=== PATIENT | male | born 1990 | race Caucasian/White ===

== ENCOUNTER 2017-03-14 11:19 | Observation (INO) ==
[2017-03-14] MEDS ORDERED: DIPH/TET/ACEL PERT BOOSTER VACCINE 0.5 ML VIAL IM ONE ×2 (12:07→12:10)
--- NOTE | 2017-03-14 12:15 | Emergency Department Note ---
Arrival - Arrival Chief Complaint: Wound/Laceration Stated Complaint: finger cut sand blasting ED Nursing Triage Note: pt c/o wound to right thumb- pt was sandblasting and his thumb was hit with the sandblast. dime size wound noted to thumb, no bleeding at triage. dressing in place. incident occured at 0900. Mode of Arrival: Ambulatory Source: Patient Time Seen by Provider: 03/14/17 11:47 - History of Present Illness HPI Narrative: 27 y/o white male presents to the ER complaining of wound to right thumb. States he was sandblasting on the pipe line and his thumb was hit by the sandblast. Injury occurred at 0900 this morning. Pain with touch and movement. Tetanus shot is not UTD. Denies past medical history. Onset (ago): hour(s) (3) Consistency: constant Severity: moderate Quality: aching Allergies/Adverse Reactions: Allergies Allergy/AdvReac Type Severity Reaction Status Date / Time No Known Allergies Allergy Verified 03/14/17 11:42 Review of System - Review of System 12 point system: reviewed and no additional remarkable complaints except as stated - Review of System Skin: Present: other (blast injury to right thumb ) Medical,Surgical,& Family Hx - Social History Smoking Status: Never smoker Frequency of Alcohol Use: Occasionally Type of Drug Use: None Exam Vital Signs: Vital Signs Temperature 98.0 F 03/14/17 11:40 Pulse Rate 79 03/14/17 13:30 Respiratory Rate 20 03/14/17 13:30 Blood Pressure 141/91 03/14/17 13:30 O2 Sat by Pulse Oximetry 100 03/14/17 13:30 - General General appearance: alert, in no apparent distress - ENT ENT exam: Present: normal exam, normal oropharynx, mucous membranes moist - Chest Chest inspection: Present: normal inspection - Respiratory Respiratory exam: Present: normal lung sounds bilaterally - Cardiovascular Cardiovascular exam: Present: regular rate, normal rhythm, normal heart sounds - Extremities Exam Extremities exam: Present: normal inspection, full ROM (Full ROM to right thumb ; dime size injury right thumb; TTP), normal capillary refill - Neurological Exam Neurological exam: Present: alert, oriented X3 - Psychiatric Psychiatric exam: Present: normal affect, normal mood - Skin Skin exam: Present: warm, dry, other (dime size wound to right thumb; TTP; no active bleeding ) Course Course Narrative: Irrigated finger with 250 ml of Normal Saline and cleaned with wound cleanser - Consultations Consultation #1: Dr. Winters Time: 14:40 (Discussed case with Dr. Winters. Dr. Winters will take patient to surgery after clinic to was wound out ) Results - Labs CBC & BMP: 03/14/17 14:18 03/14/17 14:18 Lab Results: I have reviewed the patients labs - Diagnostic Findings Procedure: X-ray: image reviewed by me, report reviewed by me (right thumb: No bony abnormality. Amorphous particlate foreign body opacity associated with the shallow soft tissue and or sking surface of the thumb. ) Disposition Clinical Impression: Blast injury Case discussed with: patient Disposition: Still a Patient Condition: Stable Instructions: Acute Wound Care (ED) Additional Instructions: Follow up with Primary Care Physician in 2 days for a wound check and ER as needed. No driving while taking [place]. Referrals: Tom Winters Jr., MD [Physician] - 24-48 Hrs if not improved Contact your physician if you experience:: fever over 101, Redness or swelling, pain uncontrolled by pain medications Return to the Emergency Department if:: fever over 101, Redness or swelling, pain uncontrolled by pain medications
--- NOTE | 2017-03-14 13:56 | XRay Report ---
History: Right thumb wound. Sandblaster injury Date: 03/14/2017 Study: Right thumb 3 views Comparison exam: No previous There is no fracture, dislocation, or focal destructive osseous abnormality. There is some amorphous high density soft tissue opacity in the soft tissues ventral and medial to the distal aspect of the first proximal phalanx. Impression: No bony abnormality. Amorphous particulate foreign body opacity associated with the shallow soft tissues and/or skin surface of the thumb PROCEDURE INTERPRETED AT [facility] DEPARTMENT OF RADIOLOGY Final Report Signed by: Dr. Jada Gonzalez
[2017-03-14 14:28] LABS: Basophils # 0.1 10*3/uL (0.0-0.2); Basophils % 0.7 % (0.0-0.8); Eosinophils # 0.3 10*3/uL (0.0-0.87); Eosinophils % 3.8 % (0.00-10.9); Hematocrit 47.1 VOL% (42.0-52.0); Hemoglobin 15.5 GM/DL (14.0-18.0); Immature Granulocytes % 0.1 %; Immature Granulocytes Absolute 0.01 #; Lymphocytes # 2.5 10*3/uL (1.4-4.0); Lymphocytes % 33.7 % (21.2-54.2); Mean Corpuscular HGB Conc 32.9 GM/DL (32-36); Mean Corpuscular Hemoglobin 29 PG (27-34); Mean Corpuscular Volume 87.7 FL (87-102); Mean Platelet Volume 10.1 FL (9.6-12.0); Monocytes # 0.5 10*3/uL (0.11-0.8); Monocytes % 6.5 % (1.7-12.7); Neutrophils # 4.1 10*3/uL (1.4-7.4); Neutrophils % 55.2 % (38.7-73.9); Platelet Count 216 T/CUMM (130-400); Red Blood Count 5.37 MC/CUMM (3.8-5.5); Red Cell Distribution Width 12.8 % (9.3-17.3); White Blood Count 7.4 T/CUMM (4-12)
[2017-03-14 14:57] LABS: Albumin 4.5 G/DL (3.4-5.0); Bilirubin,Total 0.6 MG/DL (0.2-1.0); Calcium 9.1 MG/DL (8.5-10.1); Osmolality,Calculated 277.5 MOS/KG (273-304); Potassium 4.2 MMOL/L (3.5-5.1); Total Protein 7.9 G/DL (6.4-8.3)
[2017-03-14] MEDS ORDERED: HYDROmorphone 2 MG/1 ML VIAL IM STA (15:08)
[2017-03-14] MEDS ORDERED: ONDANSETRON 4 MG/2 ML VIAL IM STA (15:08)
[2017-03-14] MEDS ORDERED: HYDROmorphone 2 MG/1 ML VIAL IV STA (15:08)
[2017-03-14] MEDS ORDERED: ONDANSETRON 4 MG/2 ML VIAL IV STA (15:10)
[2017-03-14] MEDS ORDERED: HYDROmorphone 2 MG/1 ML VIAL ONE (15:12)
[2017-03-14] MEDS ORDERED: ONDANSETRON 4 MG/2 ML VIAL ONE ×2 (15:12→18:07)
[2017-03-14] MEDS ORDERED: ceFAZolin 1,000 MG VIAL ONE (15:24)
--- NOTE | 2017-03-14 16:50 | Orthopedic History & Physical ---
Assessment and Plan (1) Blast injury Status: Acute Current Visit: Yes History of Present Illness Chief complaint: Right thumb sandblasting injury History of present illness: Mr. Ramos is a 27 year old male who earlier today sustained a right thumb sandblasting injury when his thumb slipped in front of the nozzle. He underwent an initial irrigation and debridement in the emergency room. The x- rays after the blast injury demonstrated retained sand. He has not had any history of previous injuries to his thumb. Past medical history is negative. Past surgical history significant for tonsillectomy. He is on no medicines. He has no known drug allergies. He is a 6 pack per day drinker. He is an occasional smoker. Review of systems is otherwise negative. Alert and oriented Lungs clear to auscultation Heart regular rate and rhythm Right thumb demonstrates a blast injury to the volar aspect of his thumb. His sensation is returning from his previous block. Sensation is grossly intact to light touch to the radial and ulnar aspects of his thumb. FPL and EPL are intact. He is nontender over his thenar eminence and the rest of his hand. There is no erythema or induration. Radiographs thumb were reviewed and demonstrate retained sand within the volar soft tissues of his thumb. No fracture seen. Impression: Right thumb sandblasting injury with retained sand Plan: I have advised irrigation and debridement with removal of sand. Risks and benefits of the procedure as well as the rationale for the procedure were discussed. All questions were answered. Allergies Allergy/AdvReac Type Severity Reaction Status Date / Time No Known Allergies Allergy Verified 03/14/17 11:42 12 point system: reviewed and no additional remarkable complaints except as stated Medical,Surgical,& Family Hx - Social History Smoking Status: Never smoker Frequency of Alcohol Use: Occasionally Type of Drug Use: None Exam - Constitutional Vitals: Period Temp Pulse Resp BP Sys/[place] Pulse Ox Last 24 Hr 98.0 F 79-81 18-20 132-141/78-91 98-100 Results - Labs CBC & BMP: 03/14/17 14:18 03/14/17 14:18
--- NOTE | 2017-03-14 16:52 | Operative Note ---
Date of procedure: 03/14/17 Procedure: DIAGNOSIS: Right thumb sandblast injury with retained sand PROCEDURE: Irrigation and excisional debridement (2 x 2 centimeters), removal foreign body right thumb SURGEON: Singh ANESTHESIA: LMA general PROCEDURE and FINDINGS: After adequate anesthesia was induced, a digital block was performed with a 50-50 mixture of 2% lidocaine and half percent Marcaine. His right upper extremity was prepped and draped in usual sterile fashion. His limb was exsanguinated with Esmarch and tourniquet inflated 250 mmHg. Estimated tourniquet time was 14 minutes and was released prior to dressing application. Necrotic skin was sharply excised. Sand impregnated subcutaneous tissue was excised. The wound was copiously irrigated with normal saline. At the distal extent of the injury, a 5 x 5 mm area of the FPL tendon sheath was exposed. 4-0 plain gut was used to close subcutaneous tissue over the tendon sheath. 6.5 cc half percent Marcaine was placed as a digital block for postoperative analgesia. A sterile wet-to-dry dressing was applied. The tourniquet was released and the patient was extubated and transferred to recovery room in stable condition. Surgeon / Physician: Tom Winters Jr. Results - Labs CBC & BMP: 03/14/17 14:18 03/14/17 14:18 Discharge Plan - Discharge Data Disposition: Still a Patient - Follow Up or Referral Follow Up: Tom Winters Jr., MD [Physician] - 24-48 Hrs if not improved - Forms/Instructions Instructions: Acute Wound Care (ED)
[2017-03-14] MEDS ORDERED: KETOROLAC 30 MG/1 ML VIAL ONE (18:07)
[2017-03-14] MEDS ORDERED: PROPOFOL 200 MG/20 ML VIAL IV ONE (18:07)
[2017-03-14] MEDS ORDERED: BUPIVACAINE 0.5% 50 ML VIAL ONE ×2 (18:16→18:21)
--- NOTE | 2017-03-14 19:00 | Anesthesia Post-Op ---
Anesthesia Post OP - Post Ansesthetic Evaluation Patient seen in post op: Yes Resp: within normal limits CV: within normal limits Mental: within normal limits Temp: within normal limits [id number]: within normal limits Nausea and Vomiting: within normal limits Pain: within normal limits
[2017-03-14] MEDS ORDERED: MIDAZOLAM 2 MG/2 ML VIAL ONE (19:06)
[2017-03-14] MEDS ORDERED: fentaNYL 100 MCG/2 ML VIAL ONE (19:06)
[2017-03-14] MEDS ORDERED: DESFLURANE 1 UNIT/15 MINUTE INH ONE (19:06)
[2017-03-14] MEDS ORDERED: MEPERIDINE 25 MG/1 ML VIAL ONE (19:17)
[2017-03-14] MEDS ORDERED: diphenhydrAMINE 50 MG/1 ML VIAL IV PRN (19:22)
[2017-03-14] MEDS ORDERED: MEPERIDINE 25 MG/1 ML VIAL IV PRN (19:22)
[2017-03-14] MEDS ORDERED: LACTATED RINGERS 1,000 ML IV SCH (19:30)
[2017-03-14 20:26] VITALS: BP 140/98
--- NOTE | 2017-03-14 20:38 | XRay Report ---
XR finger RT Clinical Information: s/p sand removal right thumb Comparison: Radiographs 03/14/2017 at 12:10 PM Findings: Since the prior study, the radiopaque densities adjacent to the IP joint of the thumb appear less prominent. Minimal residual overlapping densities from the bandaging material are difficult to delineate from retained foreign bodies within the soft tissues. There is no acute fracture. Impression: As above. PROCEDURE INTERPRETED AT [facility] DEPARTMENT OF RADIOLOGY Final Report Signed by: Iker Ramos
== END 2017-03-14 22:41 | disposition home or self-care (01) ==
LOC: N.EDINP 11:19 → N.ED 11:19 → N.3E 22:33
PROVIDERS: ADMIT Orthopaedic Surgery; ATTEND Orthopaedic Surgery